=== PATIENT | female | born 1975 | race Two or more races ===

== ENCOUNTER 2019-04-30 10:45 | Inpatient (IN) | payer OTHER ==
[~2019-04-30] VITALS: Ht 157.5 cm; Wt 2.7 kg
== END 2019-05-14 13:56 | disposition home or self-care (01) | DRG 788 ==
LOC: O/R 10:45 → LDR 05-11 00:45 → SURG-SUITE 05-11 00:45 → O/R 05-23 10:45
PROVIDERS: ADMIT Specialist
PROC: 3E033VJ Introduction of Other Hormone into Peripheral Vein, Percutaneous Approach (ICD-10-PCS; 2019-05-11)
PROC: 4A1HXCZ Monitoring of Products of Conception, Cardiac Rate, External Approach (ICD-10-PCS; 2019-05-11)
PROC: 10D00Z1 Extraction of Products of Conception, Low, Open Approach (ICD-10-PCS; principal; 2019-05-11 08:00)
DX: O82 Encounter for cesarean delivery without indication (principal); O64.8XX0 Obstructed labor due to other malposition and malpresentation, not applicable or unspecified; Z3A.38 38 weeks gestation of pregnancy; Z37.0 Single live birth

== ENCOUNTER 2023-06-01 08:04 | Outpatient (CLI) | payer OTHER | END 2023-06-01 08:08 | disposition home or self-care (01) | LOC: PRENATAL 08:04 | PROVIDERS: ATTEND Obstetrics & Gynecology Maternal & Fetal Medicine | DX: O36.80X0 Pregnancy with inconclusive fetal viability, not applicable or unspecified (principal); O34.10 Maternal care for benign tumor of corpus uteri, unspecified trimester; O09.529 Supervision of elderly multigravida, unspecified trimester; O34.219 Maternal care for unspecified type scar from previous cesarean delivery; Z3A.08 8 weeks gestation of pregnancy ==